=== PATIENT | female | born 1970 | race Two or more races ===

== ENCOUNTER 2019-04-22 16:50 | Inpatient (IN) | payer OTHER ==
[~2019-04-22] VITALS: Ht 152.4 cm; Wt 75.8 kg
--- NOTE | 2019-04-22 17:10 | NUR ---
PT WHEELED TO ROOM. CHANGING INTO GOWN NOW.
--- NOTE | 2019-04-22 17:22 | NUR ---
PT STATES SHE WAS SEEN AT [facility] EARLIER THIS WEEK, DX WITH SINUS INFECTION, AND PLACED ON ABX. STATES SHE HAS BEEN TAKING THEM APPROPRIATELY. HERE TODAY NOT FEELING BETTER. STATES PAIN IS PRESENT ON LEFT SIDE OF NECK UP THE SIDE OF HER HEAD. TACHY, OTHERWISE VSS. RESTING ON GURNEY. PROVIDED WITH WARM BLANKETS. CONNECTED TO MONITOR.
--- NOTE | 2019-04-22 18:00 | NUR ---
MD AT BEDSIDE ASSESSING PT NOW.
--- NOTE | 2019-04-22 18:10 | NUR ---
PIV STARTED. BLOOD DRAWN. IV FLUIDS STARTED, PER MD ORDER.
--- NOTE | 2019-04-22 18:23 | NUR ---
LAB AT BEDSIDE. PT PROVIDED WITH URINE CUP, AWARE URINE SAMPLE IS NEEDED.
[2019-04-22] MEDS ORDERED: ONDANSETRON 2MG/ML, 2ML ONE (18:27)
[2019-04-22] MEDS ORDERED: MORPHINE SULFATE 4 MG/ML, 1ML ONE (18:27)
[2019-04-22] MEDS ORDERED: ACETAMINOPHEN 500 MG TABLET ONE (18:28)
[2019-04-22] MEDS ORDERED: ONDANSETRON 2MG/ML, 2ML IVPush ONE (18:30)
[2019-04-22] MEDS ORDERED: ACETAMINOPHEN 500 MG TABLET PO ONE (18:30)
[2019-04-22] MEDS ORDERED: MORPHINE SULFATE 4 MG/ML, 1ML IVPush PRN (18:30)
[2019-04-22] MEDS ORDERED: SODIUM CHLORIDE 0.9% 1,000ML IVBOLUS ONE (18:30)
--- NOTE | 2019-04-22 18:31 | NUR ---
PT MEDICATED PER EMAR. RAD FINISHED AT BEDSIDE.
[2019-04-22 18:37] LABS: BASOPHILS # (AUTO) 0.04 x10^3/uL (0-0.1); BASOPHILS % (AUTO) 0 % (0-1); EOSINOPHILS # (AUTO) 0.09 x10^3/uL (0-0.4); EOSINOPHILS % (AUTO) 1 % (1-7); LYMPHOCYTES # (AUTO) 2.12 x10^3/uL (1-3.4); LYMPHOCYTES % (AUTO) 15 % (22-44); MD NO; MEAN CORPUSCULAR HEMOGLOBIN 29.2 pg (27.0-34.8); MEAN CORPUSCULAR HGB CONC 32.7 g/dL (32.4-35.8); MEAN CORPUSCULAR VOLUME 89.3 fL (80-100); MEAN PLATELET VOLUME 8.8 fL (7.4-10.4); MONOCYTES # (AUTO) 1.43 x10^3/uL (0.2-0.8); MONOCYTES % (AUTO) 10 % (2-9); NEUTROPHILS % (AUTO) 75 % (42-75); PLATELET COUNT 485 x10^3/uL (130-400); RED BLOOD COUNT 4.16 x10^6/uL (3.82-5.3); RED CELL DISTRIBUTION WIDTH 13.7 % (9.6-15.2)
--- NOTE | 2019-04-22 18:51 | NUR ---
REPORT GIVEN TO BOOKER AHMADI.
[2019-04-22 18:53] LABS: ALANINE AMINOTRANSFERASE 44 U/L (12-78); ALBUMIN 2.7 g/dL (3.4-5.0); ANION GAP 6 mmol/L (5-15); CALCIUM 9.3 mg/dL (8.5-10.1); CHLORIDE 104 mmol/L (98-107)
[2019-04-22 18:58] LABS: ALKALINE PHOSPHATASE 93 U/L (45-117); BILIRUBIN,TOTAL 0.4 mg/dL (0.2-1.0); CREATININE 0.65 mg/dL (0.55-1.02); T4 (THYROXINE) 15.6 mcg/dL (4.8-13.9); TOTAL PROTEIN 8.3 g/dL (6.4-8.2); TROPONIN I < 0.015 ng/mL (0.000-0.045)
--- NOTE | 2019-04-22 19:00 | NUR ---
REPORT TO DARIEN CELESTE
[2019-04-22 19:10] LABS: MICROSCOPIC AUTO
[2019-04-22 19:12] LABS: CULTURE INDICATED? YES
--- NOTE | 2019-04-22 19:14 | NUR ---
Received report at bedsided. Reviewed patients recent medical history, vital signs, interventions performed in the ER and plan of care. Introduced self to patient and family. Patient reattached to fluids and vital signs updated. Urine sent to lab for urinalysis. Awaiting lab results and ct scan.
--- NOTE | 2019-04-22 19:26 | NUR ---
Patient out of room to computed tomography imaging. Awaiting return and results
[2019-04-22] MEDS ORDERED: PROPRANOLOL 60 MG TABLET PO ONE (20:00)
[2019-04-22] MEDS ORDERED: PROPYLTHIOURACIL 50 MG TABLET PO ONE (20:00)
--- NOTE | 2019-04-22 20:27 | NUR ---
provider to bedside, educated family on patient's likely diagnosis of hyperthyroid. Informed of need for admission. Family and patient agreeable. Awaiting placement.
[2019-04-22] MEDS ORDERED: HYDROCORTISONE 100 MG INJ. ONE (20:33)
--- NOTE | 2019-04-22 20:50 | NUR ---
TP RN: PT. TO BE HELD IN ED; HOSPITAL BED ORDERED.
[2019-04-22] MEDS ORDERED: HYDROCORTISONE 100 MG INJ. IV ONE (21:00)
--- NOTE | 2019-04-22 21:06 | NUR ---
Patient a hold in the emergency room. Gave report to ubaldo Gentile. Covered patient's recent medical history (no chronic medical history prior to this admit) interventions performed in the ER including iv started, medications given and plan of care.
[2019-04-22] MEDS ORDERED: CEFTRIAXONE PMX 1GM/50ML 50 ML IV SCH (21:30)
[2019-04-22] MEDS ORDERED: ONDANSETRON ODT 4 MG PO PRN (21:30)
[2019-04-22] MEDS ORDERED: BISACODYL 10 MG SUPP PR PRN (21:30)
[2019-04-22] MEDS ORDERED: POLYETHYLENE GLYCOL 17 GM PACKET PO PRN (21:30)
[2019-04-22 22:29] VITALS: BP 92/57
[2019-04-22] MEDS ORDERED: FLU VACC QS2019-20 36MOS UP/PF 0.5 ML IM-VACC ONE (23:00)
[2019-04-22] MEDS ORDERED: OMNIPAQUE 350 MG/ML, 100ML BOTTLE ONE (23:39)
[2019-04-22] MEDS: HEPARIN 5,000 UNITS/ML, 1ML SQ SCH (23:45)
[2019-04-22] MEDS: SODIUM CHLORIDE 0.9% 1,000 ML IV SCH (23:45)
[2019-04-23] MEDS: PROPRANOLOL 60 MG TABLET PO SCH ×6 (00:19→21:39)
[2019-04-23] MEDS: PROPYLTHIOURACIL 50 MG TABLET PO SCH ×6 (00:19→21:40)
[2019-04-23 00:54] LABS: RAPID INFLUENZA A Negative (Negative); RAPID INFLUENZA B Negative (Negative)
[2019-04-23 03:00] VITALS: BP 93/60
[2019-04-23] MEDS: HEPARIN 5,000 UNITS/ML, 1ML SQ SCH ×3 (05:23→21:38)
[2019-04-23] MEDS: HYDROCORTISONE 100 MG INJ. IVPush SCH ×3 (05:29→21:38)
[2019-04-23] MEDS: ACETAMINOPHEN 325 MG TABLET PO PRN (05:32)
[2019-04-23 05:48] LABS: BASOPHILS # (AUTO) 0.02 x10^3/uL (0-0.1); BASOPHILS % (AUTO) 0 % (0-1); EOSINOPHILS % (AUTO) 0 % (1-7); LYMPHOCYTES # (AUTO) 1.05 x10^3/uL (1-3.4); LYMPHOCYTES % (AUTO) 13 % (22-44); MD NO; MEAN CORPUSCULAR HEMOGLOBIN 29.1 pg (27.0-34.8); MEAN CORPUSCULAR HGB CONC 32.7 g/dL (32.4-35.8); MEAN PLATELET VOLUME 8.7 fL (7.4-10.4); MONOCYTES # (AUTO) 0.36 x10^3/uL (0.2-0.8); MONOCYTES % (AUTO) 4 % (2-9); NEUTROPHILS % (AUTO) 82 % (42-75); PLATELET COUNT 380 x10^3/uL (130-400); RED CELL DISTRIBUTION WIDTH 13.3 % (9.6-15.2)
[2019-04-23 05:52] LABS: ALANINE AMINOTRANSFERASE 38 U/L (12-78); ALBUMIN 2.1 g/dL (3.4-5.0); ANION GAP 5 mmol/L (5-15); CALCIUM 8.7 mg/dL (8.5-10.1); CHLORIDE 109 mmol/L (98-107); CREATININE 0.54 mg/dL (0.55-1.02)
[2019-04-23 06:02] LABS: ALKALINE PHOSPHATASE 75 U/L (45-117); BILIRUBIN,TOTAL 0.3 mg/dL (0.2-1.0); FREE T4 (FREE THYROXINE) 3.18 ng/dL (0.76-1.46); TOTAL PROTEIN 7.2 g/dL (6.4-8.2)
[2019-04-23 07:01] VITALS: BP 102/63
[2019-04-23] MEDS: SENNA/DOCUSATE TABLET PO SCH (09:19)
[2019-04-23] MEDS: SODIUM CHLORIDE 0.9% 1,000 ML IV SCH ×2 (09:19→17:29)
[2019-04-23] MEDS: CEFTRIAXONE PMX 2GM/50ML 50 ML IV SCH (09:35)
[2019-04-23 13:09] VITALS: BP 96/61
[2019-04-23 20:32] VITALS: BP 111/68
[2019-04-23 21:36] VITALS: BP 112/70
[2019-04-24 01:35] VITALS: BP 121/72
[2019-04-24] MEDS: PROPRANOLOL 60 MG TABLET PO SCH ×6 (01:46→22:07)
[2019-04-24] MEDS: SODIUM CHLORIDE 0.9% 1,000 ML IV SCH ×2 (01:46→02:04)
[2019-04-24] MEDS: PROPYLTHIOURACIL 50 MG TABLET PO SCH ×6 (01:47→22:07)
[2019-04-24 05:37] VITALS: BP 120/74
[2019-04-24] MEDS: HYDROCORTISONE 100 MG INJ. IVPush SCH ×3 (05:42→22:07)
[2019-04-24] MEDS: HEPARIN 5,000 UNITS/ML, 1ML SQ SCH ×3 (05:43→22:07)
[2019-04-24 06:14] LABS: FREE T4 (FREE THYROXINE) 3.33 ng/dL (0.76-1.46)
[2019-04-24 07:00] VITALS: BP 118/73
[2019-04-24] MEDS: CEFTRIAXONE PMX 2GM/50ML 50 ML IV SCH (09:29)
[2019-04-24] MEDS: SENNA/DOCUSATE TABLET PO SCH (09:29)
[2019-04-24 13:16] VITALS: BP 107/67
[2019-04-24] MEDS: ACETAMINOPHEN 325 MG TABLET PO PRN (14:01)
[2019-04-24 17:59] VITALS: BP 112/62
[2019-04-24 20:24] VITALS: BP 116/72
[2019-04-25] MEDS: PROPRANOLOL 60 MG TABLET PO SCH ×6 (01:13→21:18)
[2019-04-25] MEDS: PROPYLTHIOURACIL 50 MG TABLET PO SCH ×6 (01:13→21:13)
[2019-04-25 01:16] VITALS: BP 111/69
[2019-04-25] MEDS: HEPARIN 5,000 UNITS/ML, 1ML SQ SCH ×3 (06:19→21:13)
[2019-04-25] MEDS: HYDROCORTISONE 100 MG INJ. IVPush SCH ×3 (06:19→21:13)
[2019-04-25 06:29] LABS: FREE T4 (FREE THYROXINE) 3.44 ng/dL (0.76-1.46)
[2019-04-25 07:46] VITALS: BP 126/75
[2019-04-25] MEDS: SENNA/DOCUSATE TABLET PO SCH (08:23)
[2019-04-25] MEDS: CEFTRIAXONE PMX 2GM/50ML 50 ML IV SCH (08:24)
[2019-04-25] MEDS: ACETAMINOPHEN 325 MG TABLET PO PRN (08:28)
[2019-04-25 13:24] VITALS: BP 112/70
[2019-04-25 20:01] VITALS: BP 118/70
[2019-04-25] MEDS ORDERED: TEMAZEPAM 15 MG CAPSULE PO PRN (23:00)
[2019-04-26 01:19] VITALS: BP 117/72
[2019-04-26] MEDS: PROPRANOLOL 60 MG TABLET PO SCH ×6 (01:39→22:08)
[2019-04-26] MEDS: PROPYLTHIOURACIL 50 MG TABLET PO SCH ×5 (01:41→22:08)
[2019-04-26 05:16] LABS: ANION GAP 6 mmol/L (5-15); CALCIUM 8.3 mg/dL (8.5-10.1); CHLORIDE 107 mmol/L (98-107)
[2019-04-26 05:27] LABS: FREE T4 (FREE THYROXINE) 3.79 ng/dL (0.76-1.46)
[2019-04-26] MEDS ORDERED: POTASSIUM CHLORIDE 40 MEQ in SODIUM CHLORIDE 0.9% 500 ML IV ONE ×3 (06:00→15:00)
[2019-04-26] MEDS: HYDROCORTISONE 100 MG INJ. IVPush SCH ×3 (06:24→22:10)
[2019-04-26] MEDS: HEPARIN 5,000 UNITS/ML, 1ML SQ SCH ×3 (06:24→22:10)
[2019-04-26] MEDS: SENNA/DOCUSATE TABLET PO SCH (07:33)
[2019-04-26] MEDS: CEFTRIAXONE PMX 2GM/50ML 50 ML IV SCH (07:41)
[2019-04-26 08:28] VITALS: BP 133/70
[2019-04-26 13:01] VITALS: BP 137/79
[2019-04-26] MEDS ORDERED: POTASSIUM CHLORIDE 40 MEQ in SODIUM CHLORIDE 0.9% 500 ML IV STA (18:09)
[2019-04-26 19:55] VITALS: BP 105/63
[2019-04-27 01:16] VITALS: BP 110/64
[2019-04-27] MEDS: PROPYLTHIOURACIL 50 MG TABLET PO SCH ×3 (03:00→10:16)
[2019-04-27] MEDS: PROPRANOLOL 60 MG TABLET PO SCH ×4 (03:00→14:19)
[2019-04-27] MEDS: HYDROCORTISONE 100 MG INJ. IVPush SCH ×2 (06:27→14:19)
[2019-04-27] MEDS: HEPARIN 5,000 UNITS/ML, 1ML SQ SCH ×2 (06:27→13:30)
[2019-04-27 07:36] VITALS: BP 143/65
[2019-04-27] MEDS: SENNA/DOCUSATE TABLET PO SCH (08:50)
[2019-04-27] MEDS: CEFTRIAXONE PMX 2GM/50ML 50 ML IV SCH (08:50)
[2019-04-27 09:24] LABS: ANION GAP 8 mmol/L (5-15); CALCIUM 8.5 mg/dL (8.5-10.1); CHLORIDE 107 mmol/L (98-107)
[2019-04-27 09:25] LABS: CREATININE 0.71 mg/dL (0.55-1.02)
[2019-04-27] MEDS: POTASSIUM CHLORIDE 20 MEQ TAB.ER.PRT PO SCH ×3 (10:17→14:19)
[2019-04-27 14:05] VITALS: BP 110/68
[2019-04-27] MEDS ORDERED: POTASSIUM CHLORIDE 20 MEQ TAB.ER.PRT PO ONE (16:30)
[2019-04-27] MEDS ORDERED: PROP10TA16 PO (17:15)
[2019-04-27] MEDS ORDERED: METH10TA6 PO (17:15)
== END 2019-04-27 17:47 | disposition home or self-care (01) | DRG 689 ==
LOC: ED 18:11 → EDIP 20:37 → MERGE 20:37 → 5SO 22:56
PROVIDERS: ADMIT Internal Medicine; ATTEND Internal Medicine
DX: N39.0 Urinary tract infection, site not specified (principal); E05.91 Thyrotoxicosis, unspecified with thyrotoxic crisis or storm; E87.6 Hypokalemia; I25.10 Atherosclerotic heart disease of native coronary artery without angina pectoris; E06.9 Thyroiditis, unspecified; Z90.49 Acquired absence of other specified parts of digestive tract; K80.20 Calculus of gallbladder without cholecystitis without obstruction; Z87.442 Personal history of urinary calculi
CPT/HCPCS: 36415; 70450; 70491; 71045; 80048; 80053; 81001; 83605; 83880; 84132; 84436; 84439; 84443; 84481; 84484; 84703; 85025; 86376; 87040; 87081; 87086; 87400; 87880; 90686; 93005; 96361; 96374; 96375; G0378; J0696; J1644; J2405; J3480; Q9967; J1720; J2270; J7030; J7040